=== PATIENT | female | born 1990 | race Caucasian/White ===

== ENCOUNTER 2017-02-21 05:20 | Inpatient (IN) | payer OTHER ==
[~2017-02-21] VITALS: Ht 157.5 cm; Wt 74.6 kg
[2017-02-21 05:47] VITALS: Ht 157.5 cm; Wt 74.6 kg
[2017-02-21] MEDS ORDERED: PRENAT PO (05:47)
--- NOTE | 2017-02-21 05:47 | TRIAGE ---
OB Triage Datetime Report Generated by CPN: 02/21/2017 05:47 Datetime: 02/21/2017 05:36 Time of Arrival: 02/21/2017 05:20 EGA: 39.5 Arrived By: Ambulatory Chief Complaint: leaking Movement: Present Contractions: Regular Time Contractions Began: 02/21/2017 05:00 Contractions: Every 3 minutes Rupture of Membranes: Ruptured Vaginal Bleeding: None Vaginal Discharge: Denies Recent Sexual Intercouse: Denies Abdominal Trauma: Not Applicable Patient Complaints: Other Time Provider Notified: 02/21/2017 05:38 Provider Notified: Dr. Ortiz Initial Plan: CEFM, VE, nitrazine
[2017-02-21 05:48] VITALS: BP 133/86; PULSE 91; RESP 18
[2017-02-21] MEDS: LACTATED RINGER'S 1,000 ML IV SCH ×2 (05:50→08:57)
[2017-02-21] MEDS ORDERED: AMPICILLIN 2 GM/NS (PMX) 100 ML IV ONE (06:00)
[2017-02-21] MEDS ORDERED: IBUPROFEN 600 MG TAB PO PRN (06:00)
[2017-02-21] MEDS ORDERED: CARBOPROST 250 MCG INJ IM PRN (06:00)
[2017-02-21] MEDS ORDERED: LACTATED RINGER'S 1,000 ML IV PRN (06:00)
[2017-02-21] MEDS ORDERED: BUTORPHANOL 2 MG INJ IV PRN (06:00)
[2017-02-21] MEDS ORDERED: LIDOCAINE 1% (MPF) 30 ML INJ INJ PRN (06:00)
[2017-02-21] MEDS ORDERED: MISOPROSTOL 200 MCG TAB PR PRN (06:00)
[2017-02-21] MEDS ORDERED: OXYTOCIN 30 UNITS/LR 500 ML IV PRN (06:00)
[2017-02-21] MEDS ORDERED: METHYLERGONOVINE 0.2 MG INJ IM PRN (06:00)
[2017-02-21] MEDS ORDERED: OXYTOCIN 30 UNITS/LR 500 ML IV SCH ×2 (06:00)
[2017-02-21 06:05] LABS: ADD SCAN DIFF NO
[2017-02-21 06:39] LABS: INR 0.91; PROTIME 12.3 Sec (12.2-14.2)
[2017-02-21 06:53] LABS: BASOPHILS % 0.2 % (0.0-2.0); EOSINOPHILS # 0.2 10^3/ul (0.0-0.5); EOSINOPHILS % 1.7 % (0.0-7.0); HEMATOCRIT 42.6 % (37.0-47.0); HEMOGLOBIN 14.3 g/dl (12.0-16.0); LYMPHOCYTES # 3.8 10^3/ul (0.8-2.9); LYMPHOCYTES % 35.1 % (15.0-51.0); MEAN CORPUSCULAR HEMOGLOBIN 30.6 pg (29.0-33.0); MEAN CORPUSCULAR HGB CONC 33.6 g/dl (32.0-37.0); MEAN PLATELET VOLUME 11.5 fl (7.4-10.4); MONOCYTE # 0.6 10^3/ul (0.3-0.9); MONOCYTES % 5.3 % (0.0-11.0); NEUTROPHIL # 6.2 10^3/ul (1.6-7.5); NEUTROPHILS % 57.3 % (39.0-77.0); PLATELET COUNT 260 10^3/UL (140-415); RED BLOOD COUNT 4.68 10^6/ul (4.20-5.40); RED CELL DISTRIBUTION WIDTH 14.4 % (11.5-14.5); WHITE BLOOD COUNT 10.8 10^3/ul (4.8-10.8)
[2017-02-21] MEDS ORDERED: FENTAnyl 2MCG/ML-ROPIV 0.2% 100 ML ONE (06:56)
[2017-02-21] MEDS ORDERED: NALOXONE (0.4 MG/ML) INJ IV PRN ×2 (08:30→14:30)
[2017-02-21] MEDS ORDERED: FENTAnyl 2MCG/ML-ROPIV 0.2% 100 ML BAG EPI SCH (08:30)
[2017-02-21] MEDS ORDERED: AMPICILLIN 1 GM/NS (PMX) 50 ML IV SCH (10:00)
--- NOTE | 2017-02-21 10:15 | LDN ---
Date/Time of Note Date/Time of Note DATE: 02/21/17 TIME: 10:12 Delivery Summary Normal spontaneous vaginal delivery of the baby from OA position cord clamp after stopped pulsation placenta spontaneous expulsion inspected complete blood loss 100 cc Weeks of Gestation 39 weeks 5 days Placenta Delivered: Spontaneously Meconium: none Episiotomy: No Laceration repair: 1 cm perineal laceration repaired with 3-0 chromic catgut Sponge & Needle done & correct: Yes All needle counts correct: Yes Any foreign bodies felt in the: No Problems: Delivery Information Sex Sex: male Apgars 1 Minute: 9 5 Minute: 9 Suctioning Nose & mouth suctioned at [place]: Yes Umbilical Cord Umbilical cord with: 3 Vessels Cord presentations: nuchal cord Cord Blood was obtained: Yes DARLENE VARGHESE MD Feb 21, 2017 10:15
--- NOTE | 2017-02-21 10:19 | HP ---
Date/Time of Note Date/Time of Note DATE: 02/21/17 TIME: 10:15 OB - History Hx of Present Free Text/Dictation 26 years old female 3 para 1 SAB admitted to [facility] in labor on admission pelvic examination cervix 9 cm dilated 100% effacement vertex 0 station heart rate category 1 Chief Complaint: Labor pain Estimated Due Date: Feb 23, 2017 : 3 Para: 1 Spontaneous : 1 Care: Good Care Ultrasounds: Normal mid trimester US Obstetrical Complications: None Medical Complications: None Past Family/Social History * Past Medical, Surgical, Family and Obstetric Histories reviewed from chart. Rubella: immune RPR/VDRL: Negative GBS Status: Negative HBsAG: Negative OB Admission Exam Vital Signs Vital Signs Vital Signs Date Time Temp Pulse Resp B/P Pulse Ox O2 Delivery O2 Flow Rate FiO2 02/21/17 05:48 98.2 91 18 133/86 Room Air Physical Exam HEENT: WNL Heart: Rhythm Normal Lungs: Clear, Equal Abdomen: WNL Extremities: Normal Reflexes: Normal Cervical Dilatation: 9cm Effacement: 100% Station: -1 Membranes: Intact Heart Rate: 130's Accelerations: Accelerations Present Varibility: Marked Contractions on Admission: < 5 Minutes Apart Intensity: Firm Last 72 hours Lab Results CBC & BMP 02/21/17 05:45 DARLENE VARGHESE MD Feb 21, 2017 10:19
[2017-02-21] MEDS ORDERED: ACETAMINOPHEN 325 MG TAB PO PRN (14:30)
[2017-02-21] MEDS ORDERED: BENZOCAINE 20% 56 ML SPRAY TOP PRN (14:30)
[2017-02-21] MEDS ORDERED: ONDANSETRON 4 MG INJ IV PRN (14:30)
[2017-02-21] MEDS ORDERED: LANOLIN 7 GM TUBE TOP PRN (14:30)
[2017-02-21] MEDS ORDERED: WITCH HAZEL/GLYCERIN PAD PR PRN (14:30)
[2017-02-21] MEDS ORDERED: DIBUCAINE 1% 30 GM OINT PR PRN (14:30)
[2017-02-21] MEDS ORDERED: OXYCODONE/ASPIRIN (4.88/325) TAB PO PRN ×2 (14:30)
[2017-02-21] MEDS ORDERED: ACETAMINOPHEN/CODEINE #3 TAB PO PRN ×2 (14:30)
[2017-02-21] MEDS: OXYTOCIN 30 UNITS/LR 500 ML IV SCH ×2 (16:35→19:00)
[2017-02-21] MEDS: IBUPROFEN 600 MG TAB PO SCH ×2 (18:07→23:38)
[2017-02-21 19:45] VITALS: BP 120/66; PULSE 76; RESP 20
[2017-02-21] MEDS: SENNA/DOCUSATE NA (8.6MG/50MG) TAB PO SCH (20:51)
[2017-02-22 04:20] VITALS: BP 99/60; PULSE 81; RESP 18
[2017-02-22] MEDS: IBUPROFEN 600 MG TAB PO SCH ×4 (05:54→23:38)
[2017-02-22 07:30] VITALS: BP 116/68; PULSE 79; RESP 20
[2017-02-22 07:41] LABS: ADD SCAN DIFF NO; BASOPHILS % 0.2 % (0.0-2.0); EOSINOPHILS # 0.1 10^3/ul (0.0-0.5); EOSINOPHILS % 0.7 % (0.0-7.0); HEMOGLOBIN 12.1 g/dl (12.0-16.0); LYMPHOCYTES # 3.3 10^3/ul (0.8-2.9); LYMPHOCYTES % 27.9 % (15.0-51.0); MEAN CORPUSCULAR HEMOGLOBIN 30.9 pg (29.0-33.0); MEAN CORPUSCULAR HGB CONC 33.6 g/dl (32.0-37.0); MEAN CORPUSCULAR VOLUME 91.8 fl (82.0-101.0); MEAN PLATELET VOLUME 11.3 fl (7.4-10.4); MONOCYTE # 0.5 10^3/ul (0.3-0.9); MONOCYTES % 4.3 % (0.0-11.0); NEUTROPHIL # 7.8 10^3/ul (1.6-7.5); NEUTROPHILS % 66.6 % (39.0-77.0); PLATELET COUNT 217 10^3/UL (140-415); RED BLOOD COUNT 3.92 10^6/ul (4.20-5.40); RED CELL DISTRIBUTION WIDTH 14.5 % (11.5-14.5); WHITE BLOOD COUNT 11.7 10^3/ul (4.8-10.8)
[2017-02-22] MEDS: SENNA/DOCUSATE NA (8.6MG/50MG) TAB PO SCH ×2 (09:56→20:56)
--- NOTE | 2017-02-22 12:38 | PD.PPDC ---
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
--- NOTE | 2017-02-22 12:39 | DS ---
Date/Time of Note Date/Time of Note DATE: 02/22/17 TIME: 12:38 Obstetrical Discharge Record Final Diagnosis Final Diagnosis: Term delivered Vaginal Delivery Obstetrical Delivery: Spontaneous Condition on Discharge Physical Assessment Last Vitals: day 2 abdomen soft uterus firm lochia normal extremity normal advised appointment to the office in 2 weeks Voiding: Yes Bowel Movement: Yes Breast: Soft, non-tender, Filling Fundus: Firm Calf Tenderness: No Patient Condition: Good DARLENE VARGHESE MD Feb 22, 2017 12:39
[2017-02-22 16:00] VITALS: BP 128/61; PULSE 65; RESP 18
[2017-02-22 19:40] VITALS: BP 118/68; PULSE 79; RESP 16
[2017-02-23 04:25] VITALS: BP 105/57; PULSE 60; RESP 18
[2017-02-23] MEDS: IBUPROFEN 600 MG TAB PO SCH ×2 (05:59→12:08)
[2017-02-23 08:00] VITALS: BP 123/67; RESP 18
[2017-02-23] MEDS: SENNA/DOCUSATE NA (8.6MG/50MG) TAB PO SCH (08:36)
[2017-02-23] MEDS ORDERED: MEASLES,MUMPS,RUBELLA VACCINE INJ SC* ONE (09:00)
== END 2017-02-23 15:00 | disposition home or self-care (01) | DRG 775 ==
LOC: OBT 05:20 → L-D 05:20 → OBT 05:25 → L-D 05:25 → PP1 13:56
PROVIDERS: ADMIT Obstetrics & Gynecology; ATTEND Obstetrics & Gynecology
PROC: 10E0XZZ Delivery of Products of Conception, External Approach (ICD-10-PCS; principal; 2017-02-21)
PROC: 0HQ9XZZ Repair Perineum Skin, External Approach (ICD-10-PCS; 2017-02-21)
DX: O69.81X0 Labor and delivery complicated by cord around neck, without compression, not applicable or unspecified (principal); O70.0 First degree perineal laceration during delivery; Z3A.39 39 weeks gestation of pregnancy; Z37.0 Single live birth
CPT/HCPCS: 62319; 85025; 85610; 85730; 86592; 86900; 86901; 87340; A4310; G0463; J0290; J2590; J3010; J7120